=== PATIENT | female | born 1950 | race Caucasian/White ===

== ENCOUNTER 2016-10-21 09:11 | Inpatient (IN) | payer MEDICARE ==
[~2016-10-21] VITALS: Ht 175.3 cm; Wt 52.6 kg
[2016-10-21 10:14] LABS: BASOPHILS 0.1 % (0.0-2.0); EOSINOPHILS 0.2 % (0-7); HEMATOCRIT 34.7 % (36.0-48.0); HEMOGLOBIN 11.1 g/dL (12-16); IMMATURE GRANULOCYTES 0.1 % (0-5); LYMPHOCYTES 8.6 % (15-50); MCH 31.1 pg (26.0-34.0); MCV 97.2 fL (80.0-100.0); MEAN PLATELET VOLUME 9.4 fL (7.4-10.4); MONOCYTES 8.6 % (2-11); NEUTROPHILS 82.4 % (40-80); PLATELET COUNT 208 10x3/uL (130-400); RBC 3.57 10x6/uL (4.00-5.40); RDW 12.6 % (11.5-14.5); WBC 8.6 10x3/uL (4.8-10.8)
[2016-10-21 10:27] LABS: INR 1.19 (0.85-1.17)
[2016-10-21 10:35] LABS: ALBUMIN 3.3 g/dL (3.4-5.0); ALKALINE PHOSPHATASE 71 U/L (46-116); ALT (SGPT) 20 U/L (10-68); BILIRUBIN - TOTAL 0.85 mg/dL (0.2-1.3); CALC OSMOLALITY 286 mosm/kg (275-300); CALCIUM 8.7 mg/dL (8.5-10.1); CARBON DIOXIDE 26.9 mmol/L (21.0-32.0); CHLORIDE - SERUM 104 mmol/L (98-107); CREATININE - SERUM 0.8 mg/dL (0.6-1.3); POTASSIUM - SERUM 3.9 mmol/L (3.5-5.1); PROTEIN - SERUM 6.2 g/dL (6.4-8.2); SODIUM 140 mmol/L (136-145); UREA NITROGEN 21 mg/dL (7-18); eGFR NON AFRICAN AMERICAN 76 mL/min (90-120)
[2016-10-21 10:36] LABS: GLUCOSE 195 mg/dL (74-106)
[2016-10-21 10:38] LABS: CREATINE KINASE 157 UL (21-215)
[2016-10-21 10:44] LABS: TROPONIN-I < 0.017 ng/mL (0.000-0.060)
[2016-10-21 11:48] LABS: APPEARANCE CLEAR (CLEAR); BILIRUBIN NEGATIVE (NEGATIVE); COLOR YELLOW (YELLOW); GLUCOSE NEGATIVE (NEGATIVE); KETONE SMALL mg/dL (NEGATIVE); LEUKOCYTE ESTERASE NEGATIVE (NEGATIVE); NITRITE NEGATIVE (NEGATIVE); PROTEIN NEGATIVE (NEGATIVE)
--- NOTE | 2016-10-21 14:10 | NUR ---
RECEIVED PATIENT TO ROOM 2238 VIA STRETCHER FROM THE EMERGENCY ROOM. PATIENT'S SPEECH IS DIFFICULT TO UNDERSTAND AT TIMES. PATIENT HAS A HISTORY OF ALZHEIMERS, DEMENTIA, AND BIPOLAR. PATIENT'S "LIFE PARTNER"/SAFETY EQUIPMENT TESTER WITH HER AT PRESENT TIME. PATIENT SWINGING AT THE STAFF AT TIMES. PATIENT UNABLE TO ANSWER ANY OF MY QUESTIONS. ALMA MAT ON PATEINT'S BED FOR SAFETY REASONS. CALL LIGHT IN PATIENT'S REACH. LIFE PARTNER STATES SHE WILL BE STAYING WITH THE PATIENT. TEMP 98.5 AXILLARY. VSS. WILL MONITOR PATIENT.
--- NOTE | 2016-10-21 14:18 | NUR ---
ADMISSION HISTORY COMPLETED ON PATIENT. PATIENT'S LIFE PARTNER, IFTIKHAR LI, ABLE TO ANSWER ALL HISTORY QUESTIONS. 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
[2016-10-21 14:48] VITALS: BP 146/69; BMI 17.1
--- NOTE | 2016-10-21 15:57 | NUR ---
Patient Name: GUSTAVO GALLO Admission Status: ER Accout number: [id number] Admission Date: 10-21-2016 : 1950 Admission Diagnosis: Hip FX Attending: GARFIELD Current LOS: 1 Anticipated DC Date: 10-24-2016 Planned Disposition: Return to [facility] Primary Insurance: MEDICARE A & B Discharge Planning Comments: CM met with patient and life partner, Maureen Boogie, to discuss dc plans. Maureen reports patient is a resident at [facility] and she will return there at discharge. [facility] at the [facility]. Patient is demented. She was ambulatory prior to hospital admission before they noticed redness to her hip area. Maureen reports she thinks the injury occurred on Sunday when she was not there. She stated the [facility] is not sure how the injury occurred. [facility] a [facility] at the [facility]. She is unsure of needs at discharge other than returning to the [facility]. Cm will continue to follow and will assist as needed with dc plans/needs. Supervisor Pairing And Inspecting: Ester Payne [phone] Is the patient Alert and Oriented? No * How many steps to enter\exit or inside your home? none * PCP [facility] * Pharmacy [facility] * Preadmission Environment [facility] * Facility Name [facility] * ADLs Total Dependent * Equipment Rolling Walker * List name and contact numbers for known caregivers / representatives who currently or will assist patient after discharge: Maureen Boogie - life partner - [phone] or [phone] * Additional services required to return to the preadmission environment? No * Can the patient safely return to the preadmission environment? Yes * Has this patient been hospitalized within the prior 30 days at any hospital? No 0
[2016-10-21 17:31] VITALS: BP 96/52
[2016-10-21 19:01] VITALS: BP 120/60
--- NOTE | 2016-10-21 19:30 | NUR ---
REC'D PATIENT LYING DOWN IN BED RESTING. SIGNIFICANT OTHER AT BEDSIDE. TALKED TO SIGNIFICANT OTHER. INTRUCTED TO CALL IF NEEDED ANYTHING. NO DISTRESS NOTED. BED LOW, LOCKED, CALL LIGHT IN REACH, ALARM ON.
[2016-10-22] VITALS: BP 111/61
--- NOTE | 2016-10-22 00:42 | NUR ---
ADMINISTERED ATIVAN PRESCRIBED. CHANGED OUT PAD AND CLOTH PAD. PATIENT WAS COMBATIVE BUT SETTLED DOWN. SIGNIFICANT OTHER IS STILL AT BEDSIDE. INSTRUCTED TO CALL IF NEEDED ANYTHING. VERBALIZED UNDERSTANDING. BED LOW, LOCKED, CALL LIGHT IN REACH, ALARM ON.
--- NOTE | 2016-10-22 02:00 | NUR ---
PATIENT RESTING WITH EYES CLOSED WITH GUEST AT BEDSIDE. NO VISIBLE SIGNS OF DISTRESS. BED IN LOWEST POSITION AND CALL LIGHT WITHIN REACH.
[2016-10-22 04:00] VITALS: BP 127/87
--- NOTE | 2016-10-22 04:12 | NUR ---
PATIENT IS RESTING COMFORTABLY IN BED. NO DISTRESS NOTED. SIGNIFICANT OTHER IS AT BEDSIDE. INTRUCTED TO CALL IF NEEDED ANYTHING. BED LOW, LOCKED, CALL LIGHT IN REACH, ALARM ON.
[2016-10-22 06:17] LABS: BASOPHILS 0.3 % (0.0-2.0); EOSINOPHILS 0.8 % (0-7); HEMATOCRIT 28.5 % (36.0-48.0); HEMOGLOBIN 9.3 g/dL (12-16); IMMATURE GRANULOCYTES 0.1 % (0-5); LYMPHOCYTES 14.4 % (15-50); MCHC 32.6 g/dL (31.0-37.0); MEAN PLATELET VOLUME 9.5 fL (7.4-10.4); MONOCYTES 14.3 % (2-11); NEUTROPHILS 70.1 % (40-80); PLATELET COUNT 176 10x3/uL (130-400); RDW 12.6 % (11.5-14.5); WBC 7.3 10x3/uL (4.8-10.8)
[2016-10-22 06:31] LABS: CALC OSMOLALITY 285 mosm/kg (275-300); CALCIUM 8.5 mg/dL (8.5-10.1); CARBON DIOXIDE 28.5 mmol/L (21.0-32.0); CHLORIDE - SERUM 108 mmol/L (98-107); CREATININE - SERUM 0.7 mg/dL (0.6-1.3); GLUCOSE 131 mg/dL (74-106); POTASSIUM - SERUM 3.9 mmol/L (3.5-5.1); SODIUM 141 mmol/L (136-145); UREA NITROGEN 21 mg/dL (7-18); eGFR NON AFRICAN AMERICAN 88 mL/min (90-120)
[2016-10-22 08:28] VITALS: BP 113/62
[2016-10-22 12:02] VITALS: BP 118/53
[2016-10-22 16:36] VITALS: BP 115/56
[2016-10-22 20:00] VITALS: BP 152/62
[2016-10-23] VITALS (12 sets, daily range): BP systolic 121–145; BP diastolic 44–106; Ht 175.3 cm; Wt 52.6 kg
--- NOTE | 2016-10-23 03:15 | NUR ---
ASSISTED MALCOM YOUNGBLOOD IN CLEANING THE PATIENT UP AND TURNING HER. BED IN LOWEST POSITION, CALL LIGHT WITHIN REACH, AND ALMA ALARM ON AND FUNCTIONING.
[2016-10-23 05:18] LABS: BASOPHILS 0.2 % (0.0-2.0); EOSINOPHILS 0.4 % (0-7); HEMATOCRIT 29.8 % (36.0-48.0); HEMOGLOBIN 9.5 g/dL (12-16); IMMATURE GRANULOCYTES 0.4 % (0-5); LYMPHOCYTES 11.9 % (15-50); MCH 30.7 pg (26.0-34.0); MCHC 31.9 g/dL (31.0-37.0); MCV 96.4 fL (80.0-100.0); MEAN PLATELET VOLUME 9.9 fL (7.4-10.4); MONOCYTES 11.3 % (2-11); NEUTROPHILS 75.8 % (40-80); PLATELET COUNT 193 10x3/uL (130-400); RBC 3.09 10x6/uL (4.00-5.40); RDW 12.8 % (11.5-14.5)
[2016-10-23 05:26] LABS: WBC 9.8 10x3/uL (4.8-10.8)
[2016-10-23 06:02] LABS: CALC OSMOLALITY 294 mosm/kg (275-300); CALCIUM 8.7 mg/dL (8.5-10.1); CARBON DIOXIDE 26.6 mmol/L (21.0-32.0); CHLORIDE - SERUM 107 mmol/L (98-107); CREATININE - SERUM 0.8 mg/dL (0.6-1.3); GLUCOSE 142 mg/dL (74-106); POTASSIUM - SERUM 4.1 mmol/L (3.5-5.1); SODIUM 144 mmol/L (136-145); eGFR NON AFRICAN AMERICAN 76 mL/min (90-120)
[2016-10-23 06:05] LABS: UREA NITROGEN 28 mg/dL (7-18)
--- NOTE | 2016-10-23 06:33 | NUR ---
PT IS RESTING IN BED. NO DISTRESS NOTED. SHOWS NO SIGNS OF PAIN AT THIS TIME. SIGNIFICANT OTHER WENT HOME TO REST EARLIER IN THE NIGHT. BED LOW, LOCKED, CALL LIGHT IN REACH, ALARM ON.
--- NOTE | 2016-10-23 07:42 | NUR ---
RESTING QUIETLY WITH EYES CLOSED. APPEARS COMFORTABLE AT THIS TIME. LUNGS ARE CLEAR BILATERALLY, NO COUGH NOTED. SKIN IS INTACT WITHOUT REDNESS BUT SOME BRUISING NOTED TO RIGHT UPPER THIGH/HIP AREA. SL TO RIGHT FOREARM IS PATENT WITHOUT REDNESS AT INSERTION SITE. NO NEEDS NOTED.
--- NOTE | 2016-10-23 09:19 | NUR ---
INCONTINENT OF URINE. SKIN CARE PER STAFF. VERY COMBATIVE WITH MOVEMENT. GIVEN 0.5 MG SLOW IVP FOR SAME. WILL MONITOR.
--- NOTE | 2016-10-23 10:16 | NUR ---
RESTING QUIETLY WITH EYES CLOSED. NO NEEDS NOTED.
--- NOTE | 2016-10-23 12:45 | NUR ---
OFF UNIT VIA BED TO SURGERY.
--- NOTE | 2016-10-23 15:02 | NUR ---
RETURNED FROM SURGERY. VSS. NO C/O AT THIS TIME. DRESSING TO RIGHT HIP DRY AND INTACT. ROBLES PLACED IN SURGERY WITH CLEAR YELLOW URINE.
--- NOTE | 2016-10-23 17:20 | NUR ---
REQUESTED BY SIGNIFICANT OTHER AND GIVEN 0.5MG ATIVAN SLOW IVP FOR AGITATION TO STOP HER PULLING OUT HER ROBLES. WILL MONITOR.
--- NOTE | 2016-10-23 18:00 | NUR ---
DRANK ABOUT HALF OF AN ENSURE WITH SIGNIFICANT OTHERS ASSISTANCE. TOOK A FEW BITES OF MEAL WELL. NO CHANGES NOTED. VSS. DENIES NEEDS.
--- NOTE | 2016-10-23 19:39 | NUR ---
PATIENT IS RESTING WITH HER SIGNIFICANT OTHER IFTIKHAR AT HER BEDSIDE. IFTIKHAR STATED THAT SHE IS GOING HOME FOR THE NIGHT AND TO CALL HER IF THERE ARE ANY CHANGES. PATIENT'S BED IS IN THE LOWEST POSITION, CALL LIGHT WITHIN REACH, AND HER ALMA ALARM IS ON AND FUNCTIONING PROPERLY. ENCOURAGED THE PATIENT TO CALL IF SHE HAS NEEDS.
[2016-10-24] VITALS (13 sets, daily range): BP systolic 101–184; BP diastolic 49–83
--- NOTE | 2016-10-24 02:30 | NUR ---
PATIENT WOKE UP AND APPEARS TO BE IN PAIN. I ADMINISTERED DILAUDID PER DOCTOR'S ORDERS AND TURNED THE PATIENT WITH THE HELP OF ISIAH BERUMEN AND STEPHAN AGUILA.
--- NOTE | 2016-10-24 03:59 | NUR ---
PATIENT IS RESTING WITH EYES CLOSED AND DOES NOT APPEAR TO BE IN PAIN AT THIS TIME.
[2016-10-24] MEDS ORDERED: ATIVAN1 MG PO (05:01)
[2016-10-24] MEDS ORDERED: ZOLOFT50 MG PO (05:02)
[2016-10-24] MEDS ORDERED: SEROQUEL25 MG PO (05:03)
[2016-10-24] MEDS ORDERED: PEPCID20 MG PO (05:04)
[2016-10-24] MEDS ORDERED: PROMOD LIQUID P30 M1 PO (05:04)
[2016-10-24] MEDS ORDERED: VITAMIN D31000 UNIT PO (05:05)
[2016-10-24] MEDS ORDERED: FISH OIL 1,0001 CA1 PO (05:06)
[2016-10-24] MEDS ORDERED: ATARAX 25 MG TA25 MG PO (05:07)
[2016-10-24] MEDS ORDERED: MYLANTA / MAALO30 ML PO (05:08)
[2016-10-24] MEDS ORDERED: HYDROCODONE-APA1 TAB PO (05:09)
[2016-10-24] MEDS ORDERED: ACETAMINOPHEN325 MG PO (05:09)
[2016-10-24] MEDS ORDERED: ULTRAM50 MG PO (05:10)
[2016-10-24] MEDS ORDERED: HYDROCODON-ACE1 EAC7 PO (05:11)
--- NOTE | 2016-10-24 05:35 | NUR ---
SPOKE WITH JOANIE AT [facility] ABOUT FAXING A MED LIST WITH THE LAST DOSE, DATE, AND TIME.
[2016-10-24 05:42] LABS: BASOPHILS 0.2 % (0.0-2.0); EOSINOPHILS 2.7 % (0-7); HEMATOCRIT 26.8 % (36.0-48.0); HEMOGLOBIN 8.5 g/dL (12-16); IMMATURE GRANULOCYTES 0.2 % (0-5); LYMPHOCYTES 20.3 % (15-50); MCH 30.8 pg (26.0-34.0); MCHC 31.7 g/dL (31.0-37.0); MCV 97.1 fL (80.0-100.0); MEAN PLATELET VOLUME 9.8 fL (7.4-10.4); MONOCYTES 13.2 % (2-11); NEUTROPHILS 63.4 % (40-80); PLATELET COUNT 194 10x3/uL (130-400); RBC 2.76 10x6/uL (4.00-5.40); RDW 12.7 % (11.5-14.5); WBC 8.6 10x3/uL (4.8-10.8)
[2016-10-24 06:22] LABS: ALBUMIN 2.5 g/dL (3.4-5.0); ALKALINE PHOSPHATASE 60 U/L (46-116); ALT (SGPT) 32 U/L (10-68); BILIRUBIN - TOTAL 0.53 mg/dL (0.2-1.3); CALC OSMOLALITY 293 mosm/kg (275-300); CALCIUM 8.3 mg/dL (8.5-10.1); CARBON DIOXIDE 28.1 mmol/L (21.0-32.0); CHLORIDE - SERUM 109 mmol/L (98-107); CREATININE - SERUM 0.6 mg/dL (0.6-1.3); GLUCOSE 117 mg/dL (74-106); PROTEIN - SERUM 5.4 g/dL (6.4-8.2); SODIUM 145 mmol/L (136-145); UREA NITROGEN 23 mg/dL (7-18); eGFR NON AFRICAN AMERICAN > 90 mL/min (90-120)
--- NOTE | 2016-10-24 07:44 | NUR ---
AROUSES TO VERBAL AND TACTILE STIMULATION. ORIENTED TO SELF ONLY. ATTEMPTS TO REORIENT WITHOUT SUCCESS. LUNGS ARE CLEAR BILATERALLY BUT DIMINISHED THROUGHOUT. SKIN IS INTACT WITHOUT REDNESS EXCEPT INCISION TO RIGHT HIP WHICH HAS A DRY INTACT DRESSING IN PLACE. SCD'S IN PLACE WELL. IV TO RIGHT FOREARM PATENT WITHOUT REDNESS AT INSERTION SITE. ROBLES PATENT WITH CLEAR YELLOW URINE. NO NEEDS NOTED.
--- NOTE | 2016-10-24 10:20 | NUR ---
TRANSFUSION INITIATED. VSS. CAREGIVER AT BEDSIDE.
--- NOTE | 2016-10-24 10:33 | NUR ---
TRANSFUSION CONTINUES WITHOUT COMPLICATIONS. VSS.
--- NOTE | 2016-10-24 11:10 | NUR ---
IV SITED TO RIGHT AC AREA AFTER MULTIPLE ATTEMPTS WITH 22G. NECESSARY FOR VANC DOSE DUE.
--- NOTE | 2016-10-24 12:53 | NUR ---
TRANSFUSION COMPLETED. NO SIGNS OF REACTIONS. VSS. EATING LUNCH WITH ASSISTANCE FROM SIGNIFIACANT OTHER.
--- NOTE | 2016-10-24 17:30 | NUR ---
SUPPER TRAY SERVED. SIGNIFICANT OTHER IS FEEDING PATIENT. NO SIGNS OF PAIN AT THIS TIME. DRESSING TO RIGHT HIP REMAINS DRY AND INTACT.
--- NOTE | 2016-10-24 18:00 | NUR ---
REPOSITIONED TO LEFT SIDE PER STAFF.
--- NOTE | 2016-10-24 18:45 | NUR ---
HAS TURNED SELF BACK TO RIGHT SIDE AT THIS TIME. NO NEEDS NOTED. NO CHANGES NOTED.
[2016-10-25] VITALS: BP 115/56
[2016-10-25 04:00] VITALS: BP 111/59
--- NOTE | 2016-10-25 07:50 | NUR ---
PT DISORIENTED TO SURROUNDING RESP EVEN AND NONLABORED IV TO RIGHT UPPER ARM STARTED AT THIS TIME PATENT AND INTACT FAMILY AT BEDSIDE. SRX2 BED AT LOWEST SETTING CALL LIGHT WITHIN REACH WILL CONTINUE TO MONITOR
[2016-10-25 08:31] LABS: BASOPHILS 0.4 % (0.0-2.0); EOSINOPHILS 5.2 % (0-7); HEMATOCRIT 28.5 % (36.0-48.0); HEMOGLOBIN 9.5 g/dL (12-16); IMMATURE GRANULOCYTES 0.4 % (0-5); LYMPHOCYTES 17.3 % (15-50); MCH 30.9 pg (26.0-34.0); MCHC 33.3 g/dL (31.0-37.0); MEAN PLATELET VOLUME 9.6 fL (7.4-10.4); MONOCYTES 13.2 % (2-11); NEUTROPHILS 63.5 % (40-80); PLATELET COUNT 229 10x3/uL (130-400); RBC 3.07 10x6/uL (4.00-5.40); RDW 13.8 % (11.5-14.5); WBC 6.9 10x3/uL (4.8-10.8)
[2016-10-25] MEDS ORDERED: ELIQUIS2.5 MG PO (08:35)
[2016-10-25 08:38] LABS: MCV 92.8 fL (80.0-100.0)
[2016-10-25 08:41] VITALS: BP 122/65
[2016-10-25 08:55] LABS: ALBUMIN 2.3 g/dL (3.4-5.0); ALKALINE PHOSPHATASE 68 U/L (46-116); ALT (SGPT) 36 U/L (10-68); BILIRUBIN - TOTAL 1.17 mg/dL (0.2-1.3); CALC OSMOLALITY 281 mosm/kg (275-300); CALCIUM 8.3 mg/dL (8.5-10.1); CARBON DIOXIDE 28.7 mmol/L (21.0-32.0); CHLORIDE - SERUM 104 mmol/L (98-107); CREATININE - SERUM 0.6 mg/dL (0.6-1.3); GLUCOSE 95 mg/dL (74-106); SODIUM 140 mmol/L (136-145); UREA NITROGEN 20 mg/dL (7-18); eGFR NON AFRICAN AMERICAN > 90 mL/min (90-120)
--- NOTE | 2016-10-25 12:46 | NUR ---
CM REASSESSMENT NOTE: PATIENT IS DISCHARGING TO [facility] TODAY BY AMBULANCE TO A SKILLED BED. FACILITY WILL CALL WHEN PATIENTS AIR MATTRESS IS READY.
[2016-10-25 13:58] VITALS: BP 121/62
--- NOTE | 2016-10-25 15:40 | NUR ---
PT LEFT FACILITY VIA STRETCHER VIA [facility] TO GO BACK TO [facility] AT THIS TIME WITH FAMILY PRESENT
--- NOTE | 2016-10-26 17:40 | OP ---
PATIENT NAME: GUSTAVO GALLO MEDICAL RECORD: [id number] :[birth year] LOCATION:[id number] ADMISSION DATE:10/21/16 SURGEON: LISSY CHRISTENSEN MD DATE OF OPERATION: 10/23/2016 PREOPERATIVE DIAGNOSIS: Intertrochanteric hip fracture of the right hip. POSTOPERATIVE DIAGNOSIS: Intertrochanteric hip fracture of the right hip. PROCEDURE: Gamma nail intramedullary fixation of the right hip. SURGEON: Lissy Christensen MD. ANESTHESIA: General. INTRAOPERATIVE COMPLICATIONS: None. SUMMARY OF PATHOLOGIC FINDINGS: The patient had displaced intertrochanteric hip fracture that replaced nicely using fracture table. OPERATIVE SUMMARY IN DETAIL: After obtaining the appropriate preoperative orthopedic surgery consent as well as anesthetic consultation, evaluation and clearance, the patient was brought to the operating room and placed on the operating table in supine position. After general laryngeal mask was administered, the patient was placed on the fracture table. The left leg was placed in the well leg conn. The right leg was placed in the traction boot. She was held firmly to the operating table using the vacuum pack suction system and straps as well. Reduction maneuver was performed resulting anatomic realignment. The hip was prepped and draped in routine sterile fashion under fluoroscopic guidance. Awl was used to make an intramedullary hole for the intramedullary guidewire. Proximal reaming was then followed by insertion of the nail to the appropriate depth as seen on fluoroscopic view. The guidewire was placed in the center-center position, AP and lateral planes. Reaming was then followed by insertion of the 100 mm compression screw. Derotational screw was deployed and then compression was placed across the fracture. Distal interlocking was done in the usual fashion. Under fluoroscopic guidance, a 35 distal locking screw was utilized. Wounds were irrigated and closed in usual fashion. Sterile dressings were applied. The patient was awakened, taken to recovery room in stable condition. All final needle and sponge counts were correct. TRANSINT:[id number] Voice Confirmation ID: [id number] DOCUMENT ID: [id number] LISSY CHRISTENSEN MD at 1740 CC: [id number] DICTATION DATE: 10/23/16 1413 SUPERVISOR VACUUM METALIZING: 10/23/162128 DIS IN 10/25/16 [facility] [address] [facility] [place] [address]
== END 2016-10-25 15:42 | DRG 481 ==
LOC: D.ER 09:11 → EDBD 09:11 → D.MS 13:09
PROVIDERS: Emergency Medicine; Orthopaedic Surgery; ADMIT Family Medicine
PROC: 0QS636Z Reposition Right Upper Femur with Intramedullary Internal Fixation Device, Percutaneous Approach (ICD-10-PCS; principal; 2016-10-23 11:45)
DX: M84.451A Pathological fracture, right femur, initial encounter for fracture (principal); F02.81 Dementia in other diseases classified elsewhere, unspecified severity, with behavioral disturbance; E44.0 Moderate protein-calorie malnutrition; G30.9 Alzheimer's disease, unspecified; J43.9 Emphysema, unspecified; K59.00 Constipation, unspecified; K21.9 Gastro-esophageal reflux disease without esophagitis; F41.8 Other specified anxiety disorders; D63.8 Anemia in other chronic diseases classified elsewhere; Z66 Do not resuscitate